=== PATIENT | male | born 1955 | race Native Hawaiian/Other Pacific Islander ===

== ENCOUNTER 2021-02-15 09:03 | Outpatient (CLI) | payer OTHER ==
[2021-02-15 09:33] LABS: PLATELET COUNT 228 K/uL (142-355)
[2021-02-15 10:21] LABS: POTASSIUM 4.3 mmol/L (3.6-5.2)
== END 2021-02-15 19:29 | disposition home or self-care (01) ==
LOC: LABW 09:03
PROVIDERS: ATTEND Nurse Practitioner Family
DX: I10 Essential (primary) hypertension (principal); Z13.1 Encounter for screening for diabetes mellitus; E78.5 Hyperlipidemia, unspecified; E55.9 Vitamin D deficiency, unspecified; Z12.5 Encounter for screening for malignant neoplasm of prostate; R53.83 Other fatigue; Z79.899 Other long term (current) drug therapy
CPT/HCPCS: 36415; 80053; 80061; 82306; 83036; 84153; 84403; 84443; 85027